=== PATIENT | male | born 1960 | race Two or more races ===

== ENCOUNTER 2021-02-15 21:25 | Emergency (ER) | payer OTHER ==
[~2021-02-15] VITALS: Ht 188 cm; Wt 98.9 kg
[2021-02-15] MEDS ORDERED: NORVASC5 MG PO (21:33)
[2021-02-15] MEDS ORDERED: MOXIFLOXACIN H400 MG PO (23:23)
[2021-02-15] MEDS ORDERED: AFRIN15 ML IH (23:30)
== END 2021-02-15 23:40 | disposition home or self-care (01) ==
LOC: ER 21:25
DX: R09.81 Nasal congestion (principal)